=== PATIENT | male | born 1985 | race Caucasian/White ===

== ENCOUNTER 2017-06-03 01:56 | Emergency (ER) | payer SELFPAY ==
[~2017-06-03] VITALS: Ht 170.2 cm; Wt 68.0 kg
[~2017-06-03 01:56] MED LIST: NAPROXEN500 MG PO
== END 2017-06-03 03:04 | disposition home or self-care (01) ==
LOC: ED 01:56
PROC: 0HQLXZZ Repair Left Lower Leg Skin, External Approach (ICD-10-PCS; principal; 2017-06-03)
DX: S81.812A Laceration without foreign body, left lower leg, initial encounter (principal); F17.200 Nicotine dependence, unspecified, uncomplicated; W01.0XXA Fall on same level from slipping, tripping and stumbling without subsequent striking against object, initial encounter
CPT/HCPCS: 12013; 99282

== ENCOUNTER 2021-02-19 09:17 | Emergency (ER) | payer SELFPAY ==
[~2021-02-19] VITALS: Ht 170.2 cm; Wt 68.0 kg
== END 2021-02-19 11:22 | disposition home or self-care (01) ==
LOC: ED 09:17
DX: J06.9 Acute upper respiratory infection, unspecified (principal); Z20.822 Contact with and (suspected) exposure to COVID-19; F17.200 Nicotine dependence, unspecified, uncomplicated
CPT/HCPCS: 99283; C9803; U0003